=== PATIENT | female | born 1970 | race Hispanic/Latino ===

== ENCOUNTER 2017-12-24 05:42 | Observation (INO) | payer OTHER ==
[2017-12-23 15:28] VITALS: BMI 36.3
[2017-12-24] MEDS ORDERED: CEFAZOLIN/Water 2 GM/20 ML SYRINGE ONE (06:05)
[2017-12-24] MEDS ORDERED: Sodium Chloride 0.9% 20 ML ONE (06:16)
[2017-12-24] MEDS ORDERED: Thrombin 5000 UNITS/5 ML VIAL ONE (06:16)
[2017-12-24 06:21] LABS: #Basophils 0.1 thou/uL (0.0-0.2); #Eosinphils 0.3 thou/uL (0.0-0.7); #Lymphocytes 2.8 thou/uL (1.20-3.40); #Monocytes 0.7 thou/uL (0.11-0.59); #Neutrophils 5.9 thou/uL (1.40-6.50); %Eosinophils 2.7 % (0.0-10.0); %Monocytes 7.3 % (0.0-10.0); %Neutrophils 60.1 % (42.0-75.0); Hemoglobin 15.2 g/dL (12.0-16.0); Mean Corpuscular HGB CONC 35.5 g/dL (32.0-36.0); Mean Corpuscular Hemoglobin 32.2 pg (27.0-31.0); Mean Corpuscular Volume 90.9 fl (81.0-99.0); Mean Platelet Volume 6.7 fL (7.4-10.4); Platelet Count 368 thou/uL (130-400); RBC Distribution Width 12.5 % (11.5-14.5); Red Blood Cell (RBC) Count 4.72 mill/uL (4.20-5.40); White Blood Cell (WBC) Count 9.7 thou/uL (4.8-10.8)
[2017-12-24 06:28] LABS: PTT 27.7 SEC (22.9-36.1)
[2017-12-24] MEDS ORDERED: Fentanyl 100 MCG/2 ML VIAL ONE ×4 (06:32→13:42)
[2017-12-24] MEDS ORDERED: Midazolam HCl 2 mg/2 ml Vial ONE (06:47)
--- NOTE | 2017-12-24 07:29 | HP ---
REASON FOR ADMISSION: Here for neck surgery. 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 The neck pain has been significant enough to require a cervical epidural steroid injections on multiple occasions. This has given her temporar y relief, but no permanent relief. She has hand numbness and notices her balance is not what it used to be. MR imaging of the cervical spine revealed canal and foraminal stenosis from intervertebral d isk disease causing an early myelopathy and radiculopathy. For those reasons, she was offered surger y and she presents today. PAST MEDICAL HISTORY: Hiatal hernia, gastroesophageal reflux, carpal tunnel syndrome, neck pain, low back pain. PAST SURGICAL HISTORY: Tubal ligation, hysterectomy, bladder sling, gallbladder removal, meniscus camargo rgery and a tennis elbow operation. MEDICATIONS: Pantoprazole, gabapentin, tizanidine, Meloxicam, sertraline, hydrochlorothiazide and No rco. ALLERGIES: No known drug allergies. SOCIAL HISTORY: Ms. Em is a former smoker. Currently, she uses some E cigarettes. 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 She is single. She has 4 children. FAMILY HISTORY: Father is , had heart disease and stroke. Mother is . She had hype rtension. She has siblings who have already. REVIEW OF SYSTEMS: Otherwise negative. PHYSICAL EXAMINATION: GENERAL: Ms. Em is seen in the preoperative area. She is awake, alert, and answering questions appropriately. She still has the numbness in her hands. She has a little bit of finger discoordina tion and imbalance. NEURO: The rest of her neurological examination is normal including her level of alertness, her cogn itive function and her speech function (receptive and expressive) all her cranial nerves, her cerebel lar function including alternating rapid motions and her motor and sensory function in the lower extr emities. ADMISSION FINDINGS AND TEST RESULTS. MR imaging of cervical spine showing multilevel cervical disk d isease with stenosis and foraminal disease causing compression of neural elements. ASSESSMENT: Cervical intervertebral disk disease with canal stenosis and foraminal compromise result ing in radiculopathy and early myelopathy. PLAN: Ms. Em will be taken to the operating room for a 3-level ACDF. If she feels terrific this afternoon and is completely safe for activities of daily living, we may co nsider discharge. Otherwise, we will keep her overnight and let her go home tomorrow.
[2017-12-24] MEDS ORDERED: HYDROmorphone 0.5 MG/0.5 ML SYRINGE ONE ×6 (07:55→13:09)
[2017-12-24] MEDS ORDERED: Promethazine HCl 12.5 MG SUPP PR PRN (11:40)
[2017-12-24] MEDS ORDERED: Ondansetron HCl/PF 4 MG/2 ML Vial IVP PRN ×2 (11:40→11:54)
[2017-12-24] MEDS ORDERED: Acetaminophen/Codeine 30-300mg Tablet PO PRN (11:40)
[2017-12-24] MEDS ORDERED: diphenhydrAMINE 25 MG CAP PO PRN (11:40)
[2017-12-24] MEDS ORDERED: Promethazine HCl 25 MG/ML VIAL IM PRN ×2 (11:40→11:54)
[2017-12-24] MEDS ORDERED: traMADol HCl 50 MG TAB PO PRN ×2 (11:40)
[2017-12-24] MEDS ORDERED: Promethazine 25 MG TAB PO PRN (11:40)
[2017-12-24] MEDS ORDERED: diphenhydrAMINE 50 MG/ML VIAL IVP PRN (11:40)
[2017-12-24] MEDS ORDERED: HYDROmorphone 2 MG/ML VIAL SLOW IVP PRN (11:54)
[2017-12-24] MEDS ORDERED: Promethazine HCl 25 MG/ML VIAL SLOW IVP PRN (11:54)
--- NOTE | 2017-12-24 12:05 | OP ---
DATE OF PROCEDURE: 12/24/2017 SURGEON: Doc Valladares M.D. TRIAL JUDGE: Sadia Monk PA-C. PREOPERATIVE INDICATION: Treat pain, prevent neurological deterioration. PREOPERATIVE DIAGNOSES: Multilevel cervical disk disease with spinal stenosis, cord compression and neural foraminal stenosis with radiculopathy. POSTOPERATIVE DIAGNOSES: Multilevel cervical disk disease with spinal stenosis , cord compression and neural foraminal stenosis with radiculopathy. OPERATIVE PROCEDURE: Anterior cervical diskectomy, intervertebral arthrodesis, placement of intervertebral biomechanical device, local morselized autograft, morselized Allograft, and anterior cervical plating C4-5, C5-6, C6-7, operating microscope. PREOPERATIVE MEDICATION: Ancef 2 grams IV. DRAIN NUMBER: Zero. DRAIN TYPE: None. OPERATIVE DICTATION: The patient was brought to the operating room. General endotracheal anesthesia was induced. The patient's head was supported by gel- filled donut shaped head rest and a lateral fluoro radiograph was used to plan our incision on the right side of the neck. The right side of the neck was sterilely prepped and draped. We opened with a 10 blade knife and controlled bleeding with bipolar cautery. We dissected sharply to the platysma and cut this muscle in line with our incision. We continued our dissection medial to the sternocleidomastoid, lateral to the trachea and esophagus until we arrived at the prevertebral space. We placed a marker at C4-5 and took a lateral fluoro radiograph to confirm the levels upon which we were operating. We then elevated the longus colli muscles off the anterior surface of C4, C5, C6 and C7 and placed a self-retaining retractor at C5. We placed distraction pins at C4 and C6 and distracted across the intervening 2 interspaces. We incised the interspaces with a 15 blade knife and removed disk contents using curettes and rongeurs. As we approached the posterior longitudinal ligament, we brought the operative microscope into the field. Under microscopic magnification and using microsurgical techniques, we removed the remainder of the intervertebral disk. We accessed the ventral epidural space with a micro curet, we removed the posterior longitudinal ligament in its entirety from one nerve root to the other nerve root across the interspace at C5 -6 and C4-5. At C4-5 the posterior longitudinal ligament and the dura were calcified together. In the inferior margin of the disk space we could visualize some arachnoid, but no CSF. Tisseal was applied prior to placement of the intervertebral graft. We elected to leave the thin rim of calcified ligament attached to the dura. We turned our attention after complete decompression to arthrodesis. We prepared the endplates for grafting by removing the cartilaginous cap. We measured the height at both interspaces to 6 mm. Two separate 6 mm PEEK intervertebral grafts were brought in the field. Osteophytes that were removed from the anterior and posterior portions of the disk space of the endplates were carefully morselized on the back table after cleaned of all their soft tissue attachments. The morselized bone was added to demineralized bone matrix and packed into the 6 mm PEEK grafts. The grafts were advanced into the interspaces under radiographic guidance to the appropriate depth. We then removed our distraction pin from C4. We removed our lateral retractors down. We placed a pin at C7 and distracted from C6-C7. We incised the intervening interspace and removed disk contents using curettes and rongeurs. Here, micro curet passed behind the posterior longitudinal ligament easily and removed the posterior longitudinal ligament and posterior osteophytes across the entire interspace at C6-7 until we had decompressed both the central canal and both neural foramina. Our clean morselized bone on the back table was mixed with demineralized bone matrix and packed into a 7 mm PEEK graft. We prepared the endplates for grafting by removing the cartilaginous cap. We measured the height of the interspace to 7 mm and this was the impetus for choosing the 7 mm PEEK device. The device was advanced into the interspace under radiographic guidance to the appropriate depth. We removed our distraction pins. A 45 mm anterior cervical plate was brought into the field. We drilled pilot plant supervisor holes through the plate into the vertebral bodies at C4, C5, C6 , and C7 and we affixed the plate using 14 mm screws. Fixed angle screws were used at C7 and variable angle screws above. We engaged the locking mechanism over each of the 8 screws. AP and lateral fluoro radiographs confirmed adequate positioning of our instrumentation. We irrigated copiously with bacitracin irrigation. Hemostasis was excellent. We closed the wound in anatomic layers. We applied a sterile dressing. This was a clean case and no contamination. LOLITA
[2017-12-24] MEDS ORDERED: Metoprolol Tartrate 5 MG/5 ML VIAL ONE (13:26)
[2017-12-24] MEDS ORDERED: ePHEDrine/0.9% NaCl/PF SYRINGE 50 mg/10 ml ONE (13:26)
[2017-12-24] MEDS ORDERED: Lidocaine 1% PF 5 ML VIAL ONE (13:26)
[2017-12-24] MEDS ORDERED: PROPOFOL 200 MG/20 ML VIAL ONE (13:26)
[2017-12-24] MEDS ORDERED: Ondansetron HCl/PF 4 MG/2 ML Vial ONE (13:26)
[2017-12-24] MEDS ORDERED: Dexamethasone 20 MG/5 ML VIAL ONE (13:26)
[2017-12-24] MEDS ORDERED: CEFAZOLIN/Water 2 GM/20 ML SYRINGE SLOW IVP SCH (14:00)
[2017-12-24] MEDS: Sodium Chloride 0.9% 1,000 ML IV SCH (14:17)
[2017-12-24] MEDS: CEFAZOLIN/Water 2 GM/20 ML SYRINGE SLOW IVP SCH (18:30)
[2017-12-24] MEDS: Acetaminophen/Codeine 30-300mg Tablet PO PRN ×2 (19:37→23:21)
[2017-12-24] MEDS: tiZANidine HCl 4 MG TAB PO PRN (19:37)
[2017-12-25] MEDS: Sodium Chloride 0.9% 1,000 ML IV SCH (03:21)
[2017-12-25] MEDS: Acetaminophen/Codeine 30-300mg Tablet PO PRN ×3 (03:30→12:49)
[2017-12-25] MEDS: tiZANidine HCl 4 MG TAB PO PRN ×2 (03:30→09:49)
[2017-12-25] MEDS: CEFAZOLIN/Water 2 GM/20 ML SYRINGE SLOW IVP SCH ×2 (03:32→11:19)
[2017-12-25] MEDS ORDERED: Chloraseptic Spray 180 ml Bottle PO PRN (06:36)
--- NOTE | 2017-12-25 07:15 | PRG ---
DATE OF SERVICE: 12/25/2017 I saw Ms. Em in her hospital room this morning. She is status post 3-level ACDF. She is reassu red that overnight her neurological symptoms have improved. She has some pain in the back, likely fr om positioning on the OR table. I do not find any new neurological deficit. She has good hand stren gth and good sensation throughout. Her incision looks well approximated and Steri-Strips are in plac e. Ms. Em could be discharged today. Followup arrangements have already been made. We went over a ctivity restrictions and wound care. She has our office number to contact us with any questions. Ca ll in prescriptions were left in the electronic chart.
[2017-12-25 11:11] VITALS: BP 103/58; TEMP 98.8
== END 2017-12-25 13:50 | disposition home or self-care (01) ==
LOC: SDC 05:42 → 3SE 14:14
PROVIDERS: ADMIT Neurological Surgery; ATTEND Neurological Surgery
PROC: 0RG20A0 Fusion of 2 or more Cervical Vertebral Joints with Interbody Fusion Device, Anterior Approach, Anterior Column, Open Approach (ICD-10-PCS; principal; 2017-12-24)
PROC: 0RG2070 Fusion of 2 or more Cervical Vertebral Joints with Autologous Tissue Substitute, Anterior Approach, Anterior Column, Open Approach (ICD-10-PCS; 2017-12-24)
PROC: 0RB30ZZ Excision of Cervical Vertebral Disc, Open Approach (ICD-10-PCS; 2017-12-24)
DX: M50.121 Cervical disc disorder at C4-C5 level with radiculopathy (principal); M48.02 Spinal stenosis, cervical region; G95.20 Unspecified cord compression; K44.9 Diaphragmatic hernia without obstruction or gangrene; K21.9 Gastro-esophageal reflux disease without esophagitis; F17.210 Nicotine dependence, cigarettes, uncomplicated; Z79.899 Other long term (current) drug therapy
CPT/HCPCS: 36415; 76001; 85025; 85610; 85730; 96374; 96375; 96376; A4216; C1713; C1776; G0378; J1100; J1170; J2001; J2250; J2270; J2405; J2704; J3010; J3490

== ENCOUNTER 2018-07-22 05:40 | Day surgery (SDC) | payer BC ==
[2018-07-21 13:17] VITALS: BMI 36.8
[2018-07-22] MEDS ORDERED: Sodium Chloride 0.9% 10 ML ONE (06:18)
[2018-07-22] MEDS ORDERED: Bacitracin Zinc Ointment 30 gm TUBE ONE (06:25)
[2018-07-22] MEDS ORDERED: Lidocaine 1% (PF) 30 ML VIAL ONE (06:25)
[2018-07-22 06:32] LABS: #Basophils 0.1 thou/uL (0.0-0.2); #Eosinphils 0.2 thou/uL (0.0-0.7); #Lymphocytes 2.2 thou/uL (1.20-3.40); #Monocytes 0.6 thou/uL (0.11-0.59); #Neutrophils 5.4 thou/uL (1.40-6.50); %Lymphocytes 25.5 % (21.0-51.0); %Monocytes 7.2 % (0.0-10.0); %Neutrophils 64.3 % (42.0-75.0); Hemoglobin 14.5 g/dL (12.0-16.0); Mean Corpuscular HGB CONC 33.4 g/dL (32.0-36.0); Mean Corpuscular Hemoglobin 30.3 pg (27.0-31.0); Mean Corpuscular Volume 90.7 fL (78.0-98.0); Mean Platelet Volume 7.3 fL (7.4-10.4); Platelet Count 351 thou/uL (130-400); RBC Distribution Width 13.2 % (11.5-14.5); White Blood Cell (WBC) Count 8.4 thou/uL (4.8-10.8)
[2018-07-22] MEDS ORDERED: CEFAZOLIN 2 GM/50 ML BAG ONE (06:32)
[2018-07-22 06:38] LABS: INR-International Normal Ratio 0.9; PTT 28.2 SEC (22.9-36.1); Prothrombin Time 12.6 SEC (12.0-14.7)
[2018-07-22] MEDS ORDERED: Famotidine/PF 20 mg/2ml Vial ONE (06:53)
[2018-07-22] MEDS ORDERED: Midazolam HCl 2 mg/2 ml Vial ONE (06:53)
[2018-07-22] MEDS ORDERED: Propofol 500 MG/50 ML VIAL ONE (06:58)
[2018-07-22] MEDS ORDERED: Fentanyl 100 MCG/2 ML VIAL ONE (06:58)
--- NOTE | 2018-07-22 08:40 | HP ---
HISTORY OF PRESENT ILLNESS: Ms. Em had EMG nerve conduction studies for her hand numbness and would like to discuss the next step. She continues to have paresthesias in both hands, made better with splinting. The splints worked only when they are on and in general, the symptoms are not improving. She is here after electrodiagnostics to discuss the plan. PAST MEDICAL HISTORY: Hiatal hernia, GERD, carpal tunnel syndrome, cervical neck pain, and lumbar back pain. PAST SURGICAL HISTORY: Tubal ligation, hysterectomy, gallbladder, left knee meniscus, tennis elbow, and ACDF done by Dr. Valladares in December of 2017. FAMILY HISTORY: Father is , diagnosed with heart disease and stroke. Mother is , diagnosed with hypertension. Sibling is . MEDICATIONS: 1. Gabapentin. 2. Tizanidine. 3. Pantoprazole. 4. Meloxicam. 5. Sertraline. 6. Hydrochlorothiazide. 7. Kelso. PHYSICAL EXAMINATION: CONSTITUTIONAL: The patient is alert and oriented x3. She is not in any visible distress. RESPIRATIONS: Normal work of breathing on room air. HEENT: Head is normocephalic and atraumatic. Pupils are equal, round, and reactive to light. Extraocular movements are intact. Hearing is intact. Moist mucous membranes. NEUROLOGIC: Sensory exam; Tinel's positive right greater than left wrist, forced wrist extension makes symptoms worse. IMAGING/ELECTROMAGNETIC STUDIES: EMG and nerve conduction study, bilateral carpal tunnel syndrome, a bit worse on the left. ASSESSMENT AND PLAN: Carpal tunnel syndrome, bilateral. Dr. Valladares has offered surgery to do a carpal tunnel release. The patient has consented. We have discussed the indications, risks, benefits, and alternatives and expected results from surgery. Risks discussed included, but were not limited to, bleeding, infection, nerve damage, hand and thumb weakness, complex regional pain syndrome, reflex sympathetic dystrophy, and cardiopulmonary complications of sedation including . The patient states she understands and is willing to proceed with surgery. Job ID: [id number]
--- NOTE | 2018-07-22 12:17 | OP ---
DATE OF PROCEDURE: 07/22/2018 MARKETING PROGRAM MANAGER: Sadia Ontiveros PA-C. PREOPERATIVE INDICATION: Treat pain, prevent neurological deterioration. 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 OPERATIVE PROCEDURE: Decompression, right carpal tunnel (median neurorrhaphy at the wrist). PREOPERATIVE MEDICATION: Ancef 2 g IV. DRAIN NUMBER: Zero. DRAIN TYPE: None. DESCRIPTION OF PROCEDURE: The patient was brought to the operating room. IV sedation was administered. Oxygen mask applied. The right arm was sterilely prepped and draped. We planned an incision from the distal palmar crease into the palm in line with the web space between the middle and ring finger to the base of the thumb. Under our planned incision, we infused local anesthetic. We opened our incision with 15 blade knife and controlled the bleeding with bipolar cautery. We placed a self-retaining retractor. We then used a fresh 15 blade knife to section the transverse carpal ligament. A dissector was placed in the carpal tunnel to protect the median nerve, and we dissected into the palm sectioning the transverse carpal ligament until we released the palmar fat pad. We then looked proximally. A Philippe Thornton was placed under the skin. We placed scissors in the carpal tunnel with one blade in and one blade outside. We advanced into the forearm until there was no further transverse carpal ligament dissection and the median nerve was adequately decompressed. We irrigated with bacitracin irrigation. We closed the skin with vertical mattress Prolene sutures, and we applied a sterile dressing. This is a clean case, no contamination. Job ID: [id number]
[2018-07-22] MEDS ORDERED: Lidocaine 1% PF 5 ML VIAL ONE (13:09)
[2018-07-22] MEDS ORDERED: PROPOFOL 200 MG/20 ML VIAL ONE (13:09)
== END 2018-07-23 09:20 | disposition home or self-care (01) ==
LOC: SDC 05:40
PROVIDERS: ATTEND Neurological Surgery
PROC: 01N50ZZ Release Median Nerve, Open Approach (ICD-10-PCS; principal; 2018-07-22)
DX: G56.03 Carpal tunnel syndrome, bilateral upper limbs (principal); K21.9 Gastro-esophageal reflux disease without esophagitis; Z79.1 Long term (current) use of non-steroidal anti-inflammatories (NSAID); Z79.899 Other long term (current) drug therapy
CPT/HCPCS: 36415; 85025; 85610; 85730; J2001; J2250; J2704; J3010; J3490; S0028

== ENCOUNTER 2019-04-30 08:39 | Outpatient (CLI) | payer BC ==
--- NOTE | 2019-04-30 09:10 | RAD ---
LUMBAR SPINE 4 VIEWS: HISTORY: Low back pain. COMPARISON: None available. FINDINGS: No evidence for acute fracture or dislocation. Very mild anterior disk-osteophytosis. IMPRESSION: Very mild spondylosis. No acute process. No evidence for abnormal translation between flexion and e xtension. POS: [facility]
== END 2019-04-30 08:40 | disposition home or self-care (01) ==
LOC: TBSIIMAG 08:39
PROVIDERS: ATTEND Neurological Surgery
DX: M47.26 Other spondylosis with radiculopathy, lumbar region (principal)
CPT/HCPCS: 72110